=== PATIENT | male | born 1965 | race Caucasian/White ===

== ENCOUNTER → 2018-03-03 | Outpatient (CLI) | payer BC ==
--- NOTE | 2018-03-03 22:10 | CONS ---
CONSULTATION DATE OF SERVICE: 03/03/2018. REASON FOR CONSULTATION: Sleep apnea. HISTORY: Kenneth is 52, and he is coming in for further evaluation regarding sleep apnea. Nevertheless, this patient has a long history of snoring, however, his snoring has gradually gotten worse and over the past 9 months he has been having episodes where he would shake. These jerking movements are affecting his entire body, short lasting, not stereotypic. Unsure if these episodes are related to obstructive respiratory events. The has noted these events and she has already moved to another room and she is not watching his sleeping patterns anymore. Per history, there is loud snoring and there are witnessed apneas. There is also excessive tiredness and sleepiness as the patient has been falling asleep during the day. The patient works at the [employer]. He will drive from the [facility] to [place] and he does not have any issues with falling asleep while driving back and forth. He goes to bed between 9 to 9:30 p.m., wakes up at 4:30 a.m. in the morning. On weekends he goes to bed around 10 to 11 p.m., wakes up between 6 to 7 a.m. in the morning. It takes him a few minutes to fall asleep. He does not wake up sleepy or gasping for air. No nocturia. No grinding of the teeth. No restlessness of the lower extremities. No history of seizure activity. No head trauma. No history of meningitis. No history of any closed head injury. No substance abuse. PAST MEDICAL HISTORY: Essentially negative. PAST SURGICAL HISTORY: Negative. DRUG ALLERGIES: Not known. MEDICATIONS: None. SOCIAL HISTORY: No history of smoking, alcohol, or IV drugs. FAMILY HISTORY: Negative for sleep apnea. REVIEW OF SYSTEMS: A 12-point review of system was done and positive findings are mentioned above in the history of present illness. No anxiety, no depression. No REM behavior disorder. No sleepwalking or sleep talking. No parasomnias. No night terrors. No nocturnal anxiety or panic attacks. No daytime seizure activity. No loss of consciousness. No syncope. No sleep paralysis. No hallucinations. No cataplexy. PHYSICAL EXAMINATION: Current vitals, his blood pressure is 128/83, pulse 61, respirations 16, temperature 98.1, saturation 96% on room air. Height is 63, weight is 175, BMI is 21.5. [place] score 9, temperature is 98.1. GENERAL: Appears calm and comfortable. HEAD: Atraumatic, normocephalic. NECK: Supple. No JVD. No goiter or neck masses. Mallampati class IV. LUNGS: Clear to auscultation. HEART: Sounds regular rhythm. Normal S1, S2. No S3, S4. No murmurs. ABDOMEN: Soft, nontender. No organomegaly. EXTREMITIES: No edema. No cyanosis or clubbing. NEUROLOGIC: The patient is alert, oriented x3. No focal neurological deficits. PSYCHIATRIC: Negative for anxiety or depression. SKIN: Negative for wounds or ulcerations. IMPRESSION: Obstructive sleep apnea. This is clinically suspected. The patient does not present with typical anatomic features. He has a BMI of 21.5 and he has a neck circumference of 15. Nevertheless, he has a Mallampati class 4 and based on the 's description he has loud snoring and witnessed apneas. Nevertheless, the jerking that is occurring needs to be followed very closely and make sure there was no seizure activity along with any form of sleep breathing disorder. It is possible that the patient jerks at the time of arousal from an apnea. Seizure activity or jerks such as myoclonic jerks needs to be considered. PLAN: 1. Order a full PSG. 2. We will review the results and make further recommendations based on the findings. PADDY / RAFAN: [id number] /
== END | disposition home or self-care (01) ==
LOC: SLEEP 16:33
PROVIDERS: ATTEND Internal Medicine Critical Care Medicine
DX: G47.30 Sleep apnea, unspecified (principal)
CPT/HCPCS: 99211

== ENCOUNTER → 2018-05-05 | Outpatient (CLI) | payer BC ==
--- NOTE | 2018-05-05 18:09 | PN ---
PROGRESS NOTE This is a very pleasant, 52-year-old male patient was diagnosed having obstructive sleep apnea, AHI of 20, worse in the supine body position. The patient was offered CPAP therapy and the patient was given CPAP at a pressure of 8 cm of water. He had a very successful CPAP titration during which there was complete elimination of obstructive apneas. Nevertheless, on today's evaluation, the patient has not seen the same response. First of all, he is not much refreshed and alert and at the same time, he is having difficulties with sleepiness despite being on CPAP therapy. I quickly reviewed his CPAP compliance data and noted that the patient is still having obstructive respiratory events despite being on CPAP pressure of 8 cm of water. The leak is less than 20 L/minutes. He is averaging more than 6 hours of CPAP use per night. As such, the treatment is suboptimal, despite being adequacy being confirmed by CPAP titration. His [place] score is 11. I reviewed the sleep study again and the patient is having excessive periodic limb movements yet these are not associated with arousals. This may be representing the jerks the patient is having as reported by the . No recent weight gain. No alcoholism. No atrial fibrillation. No other complaints otherwise for now, BP is 115/71, pulse 88, respirations 16, saturation 95% on room air. Temperature 98.1. Weight is 175. Height is 6 feet 3, BMI is 21.8. General appearance: Calm, comfortable in no acute distress. Head is atraumatic, normocephalic. Neck is supple. No JVD. No goiter or neck mass. Lungs diminished breath sounds. Otherwise clear. Heart sounds are regular rate and rhythm. Normal S1, S2. No S3, S4. No murmurs. Abdomen is soft, nontender. No organomegaly. EXTREMITIES: No edema. No cyanosis or clubbing. NEUROLOGIC: The patient is oriented times three. There is no focal neurological deficits. Psychiatric negative for anxiety or depression. IMPRESSION: 1. Obstructive sleep apnea moderate in severity. AHI of 20, worse in the supine body position. The patient's treatment is suboptimal while being on a CPAP pressure of 8. 2. Hypersomnia [place] score of 11. 3. Periodic limb movement excessive yet not associated with arousals or sleep fragmentation. PLAN: 1. Discussed the findings with the patient and his . 2. Switch this patient to an APAP mode minimum pressure of 5, maximum pressure of 20. 3. Keep the same mask interface which is Simplus full face mask. 4. See me back in a week's time for re-evaluation. Anticipate complete elimination of obstructive respiratory events and some degree of clinical improvement with CPAP therapy. 5. We will continue to follow and make further recommendations based on her progress. PADDY / RAFAN: [id number] /
== END ==
LOC: SLEEP 16:07
PROVIDERS: ATTEND Internal Medicine Critical Care Medicine
DX: G47.33 Obstructive sleep apnea (adult) (pediatric) (principal); G47.61 Periodic limb movement disorder; Z99.89 Dependence on other enabling machines and devices

== ENCOUNTER → 2018-05-12 | Outpatient (CLI) | payer BC | END | disposition home or self-care (01) | LOC: SLEEP 16:32 | PROVIDERS: ATTEND Internal Medicine Critical Care Medicine | DX: Z53.9 Procedure and treatment not carried out, unspecified reason (principal) ==

== ENCOUNTER → 2018-07-21 | Outpatient (CLI) | payer BC ==
--- NOTE | 2018-07-21 18:43 | PN ---
PROGRESS NOTE This is a 52-year-old male patient diagnosed having obstructive sleep apnea with an AHI of 20, worse in the supine body position with an AHI of 29 with the patient being supine. The patient is currently being treated with an APAP, minimum of 5, maximum of 20. Today he is coming in for a compliancy check. He is doing well. He is wearing his machine every night. Based on the compliance data, his CPAP use for more than 4 hours is 87%. Average CPAP is 6 hours and 46 minutes. Minimum pressure is 5, maximum pressure 20. His AHI while on treatment is down to 4.9. Leak is 6.8 L/minute and his average pressure utilized is 11.5 cm of water. He has tried different masks, and the mask of choice for now seems to be the AirFit F30. Nevertheless, he is also interested in exploring nose masks or nose pillows, knowing that the full-face mask is making him quite uncomfortable. He was having an issue with his nose bridge on multiple occasions, and for that reason we were able to get him the F30 mask during his last evaluation. Nevertheless, overall he is doing somewhat better and his compliancy data reflect that. REVIEW OF SYSTEMS: Fourteen-point review of systems was done. Positive findings were all mentioned above in the history of present illness. No chest pain. No angina. No heartburn. No shortness of breath. No major hypersomnia or sleepiness during the day. Some occasional aerophagia. PHYSICAL EXAMINATION: His current vital signs are as follows: blood pressure 108/75, pulse 64, respiration 16. Weight 174. Temperature 97.3, saturation 96% on room air. GENERAL APPEARANCE: Calm, comfortable. Head is atraumatic, normocephalic. NECK: Supple. There is no JVD. No goiter or neck masses. Mallampati class IV. LUNGS: Clear to auscultation. HEART: Heart sounds are regular rate and rhythm. Normal S1, S2. No S3, S4. No murmurs. ABDOMEN: Soft, nontender. No organomegaly. No direct tenderness, rebound tenderness or guarding. EXTREMITIES: No edema. No cyanosis or clubbing. NEUROLOGIC: The patient is alert and oriented x3. There are no focal neurological deficits. Skin is negative for any wounds or ulcerations. PSYCHIATRIC: Negative for anxiety, depression or any bipolar disorder. IMPRESSION: 1. Symptomatic obstructive sleep apnea with an apnea/hypopnea index of 20, worse in the supine body position, currently on APAP. 2. Hypersomnia, improved. 3. Periodic limb movements. PLAN: 1. Continue APAP treatment at the same pressure settings. 2. Offer this patient a Brevida nose mask. 3. He may need to use a chin strap. 4. Implement good sleep hygiene measures. 5. See me back in a year's time, earlier if needed. For now his treatment is becoming more successful and the patient is benefitting from the treatment. MMODL / IJN: [id number] /
== END ==
LOC: SLEEP 16:37
PROVIDERS: ATTEND Internal Medicine Critical Care Medicine
DX: G47.33 Obstructive sleep apnea (adult) (pediatric) (principal); G47.61 Periodic limb movement disorder; Z99.89 Dependence on other enabling machines and devices